=== PATIENT | male | born 1985 | race Two or more races ===

== ENCOUNTER 2016-11-03 22:20 | Emergency (ER) | payer MEDICAID, OTHER ==
[~2016-11-03] VITALS: Ht 175.3 cm; Wt 103.0 kg
[2016-11-03 22:28] VITALS: BP 125/74
== END 2016-11-03 23:54 | disposition home or self-care (01) ==
LOC: ER 22:26
DX: B02.31 Zoster conjunctivitis (principal); B02.30 Zoster ocular disease, unspecified
CPT/HCPCS: 99283; A4606; Z7610

== ENCOUNTER 2016-11-04 15:52 | Emergency (ER) | payer MEDICAID, OTHER ==
[~2016-11-04] VITALS: Ht 175.3 cm; Wt 104.3 kg
--- NOTE | 2016-11-04 16:15 | NUR ---
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 NAD NOTED, VSS, WAITING FOR MD DARBY.
[2016-11-04] MEDS ORDERED: FLUORESCEIN SODIUM OPHTH 1 EA STRIP ONE (16:45)
[2016-11-04] MEDS ORDERED: TETRACAINE HCL/PF 0.5% UD 2 ML BOTTLE ONE (16:45)
[2016-11-04] MEDS ORDERED: FLUORESCEIN SODIUM OPHTH 1 EA STRIP OP ONE (17:00)
[2016-11-04] MEDS ORDERED: TETRAcaine 5 ML BOTTLE EACHEYE ONE (17:00)
--- NOTE | 2016-11-04 17:02 | NUR ---
DR. FONTANA ON THE PHONE WITH DR MIJARES (OPHTHALMOLOGY)
[2016-11-04 17:47] VITALS: BP 125/75
--- NOTE | 2016-11-04 17:50 | NUR ---
Patient discharged to home in stable condition. Written and verbal after care instructions given. Patient verbalizes understanding of instruction.
== END 2016-11-04 17:49 | disposition home or self-care (01) ==
LOC: ER 16:01
DX: B02.30 Zoster ocular disease, unspecified (principal); R79.89 Other specified abnormal findings of blood chemistry
CPT/HCPCS: 82962; 99283; A4606; Z7610

== ENCOUNTER 2018-07-17 19:23 | Emergency (ER) | payer MEDICAID, OTHER ==
[~2018-07-17] VITALS: Ht 175.3 cm; Wt 113.4 kg
--- NOTE | 2018-07-17 20:04 | NUR ---
C/C R FLANK PAIN RADIATING TO TESTICLE SINCE 11AM, VOMIT X2, TOOK TYLENOL DIE BAKER, HX OF KIDNEY STONE. PAIN IS 7/10, SHARP. MADE COMFORTABLE AND READY FOR EVAL.
[2018-07-17 20:27] LABS: BASOPHILS # (AUTO) 0.1 /CMM (0.0-0.2); BASOPHILS % (AUTO) 0.6 % (0.0-2.0); EOSINOPHILS % (AUTO) 0.3 % (0.0-6.0); HEMATOCRIT 43 % (39-51); HEMOGLOBIN 14.6 g/dL (13.5-17.5); LYMPHOCYTES # (AUTO) 0.8 /CMM (0.8-4.8); MEAN CORPUSCULAR HGB CONC 34 g/dl (31.0-36.0); MEAN CORPUSCULAR VOLUME 89 fL (80-96); MONOCYTES # (AUTO) 0.5 /CMM (0.1-1.30); MONOCYTES % (AUTO) 3.8 % (2.0-12.0); NEUTROPHILS # (AUTO) 10.6 /CMM (1.8-8.9); NEUTROPHILS % (AUTO) 88.3 % (43.0-81.0); PLATELET COUNT (AUTO) 301 /CMM (150-450); RED BLOOD CELL COUNT(AUTO) 4.86 MIL/uL (4.5-6.0)
[2018-07-17] MEDS ORDERED: KETOROLAC TROMETHAMINE INJ 30 MG/ML VIAL IV ONE (20:30)
[2018-07-17] MEDS ORDERED: ONDANSETRON HCL/PF 4 MG/2 ML VIAL IVP ONE (20:30)
[2018-07-17] MEDS ORDERED: IV NS 0.9% 1,000 ML BAG IV ONE (20:30)
[2018-07-17 20:36] LABS: CALCIUM, SERUM 9.1 mg/dL (8.5-10.1); CREATININE 0.9 mg/dL (0.6-1.3); POTASSIUM 4.1 mmol/L (3.5-5.1)
[2018-07-17 20:39] LABS: ALBUMIN 3.9 g/dL (3.4-5.0); BILIRUBIN,DIRECT 0.1 mg/dL (0.0-0.2); BILIRUBIN,TOTAL 0.6 mg/dL (0.2-1.0); TOTAL PROTEIN, SERUM 7.4 g/dL (6.4-8.2)
[2018-07-17 21:00] LABS: APPEARANCE,URINE Clear (CLEAR); BILIRUBIN,URINE Negative (NEGATIVE); BLOOD, URINE Small Ery/uL (NEGATIVE); COLOR,URINE Yellow (YELLOW); KETONES,URINE Negative (NEGATIVE); LEUKOCYTE ESTERASE ,URINE Negative (NEGATIVE); NITRITE, URINE Negative (NEGATIVE); PROTEIN,URINE Negative (NEGATIVE); UGLUCOSE Negative (NEGATIVE); UROBILINOGEN,URINE 0.2 EU/dL (0.2)
[2018-07-17 21:21] LABS: BACTERIA,URINE None seen /HPF (None Seen); SQUAMOUS EPITHELIAL CELL,UR Few /HPF (None Seen); WBC,URINE 0-2 /HPF (0-3)
[2018-07-17] MEDS ORDERED: ONDANSETRON HCL/PF 4 MG/2 ML VIAL ONE (21:44)
[2018-07-17] MEDS ORDERED: KETOROLAC TROMETHAMINE 15 MG/ML VIAL ONE (21:44)
--- NOTE | 2018-07-17 22:11 | NUR ---
IV ACCESS OBTAINED, MEDS GIVEN AND IVF INFUSING. WILL CONT TO MONITOR.
--- NOTE | 2018-07-17 23:15 | NUR ---
IV removed. Catheter intact and site benign. Pressure and 4x4 applied to site. No bleeding noted.Patient discharged to home in stable condition. Written and verbal after care instructions given. Patient verbalizes understanding of instruction.
[2018-07-18 01:19] VITALS: BP 127/74
== END 2018-07-17 23:15 | disposition home or self-care (01) ==
LOC: ER 19:23
DX: N23 Unspecified renal colic (principal); R11.10 Vomiting, unspecified; E86.0 Dehydration; F12.10 Cannabis abuse, uncomplicated; I63.9 Cerebral infarction, unspecified; Z87.442 Personal history of urinary calculi
CPT/HCPCS: 36415; 80048; 80076; 81001; 83690; 85025; 96361; 96374; 96375; 99283; J1885; J2405; J7030; 81000-TC

== ENCOUNTER 2019-09-13 22:19 | Emergency (ER) | payer MEDICAID, OTHER ==
[~2019-09-13] VITALS: Ht 175.3 cm; Wt 111.1 kg
[2019-09-13 22:37] VITALS: BP 122/85
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
[2019-09-13] MEDS ORDERED: oxyCODONE/APAP (5/325 MG) 1 UDTAB TABLET ONE (22:58)
[2019-09-13] MEDS ORDERED: oxyCODONE/APAP (5/325 MG) 1 UDTAB TABLET PO ONE (23:00)
[2019-09-13] MEDS ORDERED: LIDOCAINE HCL/MPF 1% 30 ML VIAL IJ ONE (23:51)
[2019-09-14] MEDS ORDERED: LIDOCAINE HCL/PF 1% 30 ML VIAL IM ONE
--- NOTE | 2019-09-14 01:47 | NUR ---
Patient discharged to home in stable condition. Written and verbal after care instructions given. Patient verbalizes understanding of instruction.pt. ambulatory with a steady gait
== END 2019-09-14 01:48 | disposition home or self-care (01) ==
LOC: ER 22:27
DX: S62.336A Displaced fracture of neck of fifth metacarpal bone, right hand, initial encounter for closed fracture (principal); S62.314A Displaced fracture of base of fourth metacarpal bone, right hand, initial encounter for closed fracture; W22.01XA Walked into wall, initial encounter; Y93.89 Activity, other specified; Y92.89 Other specified places as the place of occurrence of the external cause; Y99.8 Other external cause status
CPT/HCPCS: 26605; 73130 ×2; 99284; J3490 ×2

== ENCOUNTER 2020-07-21 16:52 | Emergency (ER) | payer MEDICAID ==
[~2020-07-21] VITALS: Ht 175.3 cm; Wt 108.9 kg
[2020-07-21 17:03] VITALS: BP 127/90
[2020-07-21] MEDS ORDERED: HYDR28CR67 TP (17:22)
[2020-07-21] MEDS ORDERED: IBUP-1955 PO (17:22)
[2020-07-21] MEDS ORDERED: TRAM50TA2 PO (17:22)
== END 2020-07-21 17:26 | disposition home or self-care (01) ==
LOC: ER 16:52
DX: L30.8 Other specified dermatitis (principal); Z87.442 Personal history of urinary calculi; Z79.899 Other long term (current) drug therapy

== ENCOUNTER 2020-07-23 16:35 | Emergency (ER) | payer MEDICAID ==
[~2020-07-23] VITALS: Ht 175.3 cm; Wt 111.1 kg
[~2020-07-23 16:35] MED LIST: HYDR28CR67 TP; IBUP-1955 PO; TRAM50TA2 PO
[2020-07-23 16:47] VITALS: BP 138/88
[2020-07-23] MEDS ORDERED: VALA100026 PO (16:56)
--- NOTE | 2020-07-23 17:07 | NUR ---
Patient discharged to home in stable condition. Written and verbal after care instructions given. Patient verbalizes understanding of instruction. Pt ambulatory with a steady gait
== END 2020-07-23 17:09 | disposition home or self-care (01) ==
LOC: ER 16:39
DX: B02.39 Other herpes zoster eye disease (principal); Z87.442 Personal history of urinary calculi

== ENCOUNTER 2020-11-23 08:48 | Emergency (ER) | payer MEDICAID ==
[~2020-11-23] VITALS: Ht 175.3 cm; Wt 111.1 kg
[~2020-11-23 08:48] MED LIST changes: +VALA100026 PO
--- NOTE | 2020-11-23 09:10 | NUR ---
The patient is c/o lower back pain x 1 week. Rates pain 7/10. Denies having any trauma. No apparent deformity/bruising noted. Denies numbness/tingling in the extremities. Will continue to monitor the patient.
--- NOTE | 2020-11-23 09:13 | NUR ---
DR ALMEIDA AT THE BEDSIDE
[2020-11-23] MEDS ORDERED: HYDROCODONE/APAP 5/325MG TABLET ONE (10:04)
[2020-11-23] MEDS ORDERED: HYDR-4303 PO (10:15)
[2020-11-23] MEDS ORDERED: CYCL5TAB PO (10:15)
[2020-11-23] MEDS ORDERED: IBUP-1955 PO (10:15)
[2020-11-23] MEDS ORDERED: PRED20TA PO (10:15)
[2020-11-23 10:16] VITALS: BP 126/75
--- NOTE | 2020-11-23 10:16 | NUR ---
Patient discharged to home in stable condition. Written and verbal after care instructions given. Patient verbalizes understanding of instruction.
[2020-11-23] MEDS ORDERED: HYDROCODONE/APAP 5/325MG TABLET PO ONE (10:30)
== END 2020-11-23 10:19 | disposition home or self-care (01) ==
LOC: ER 08:49
DX: M54.50 Low back pain, unspecified (principal); Z79.899 Other long term (current) drug therapy

== ENCOUNTER 2021-03-31 04:57 | Emergency (ER) | payer MEDICAID ==
[~2021-03-31] VITALS: Ht 175.3 cm; Wt 111.1 kg
[~2021-03-31 04:57] MED LIST changes: +CYCL5TAB PO; +HYDR-4303 PO; +PRED20TA PO
--- NOTE | 2021-03-31 05:20 | NUR ---
BIBS C/O "FEELING A LUMP ON TOP OF MY BELLYBUTTON". PATIENT ALERT AND ORIENTED X3. AMBULATORY WITH NON LABORED BREATHING. PATIENT IN A GOWN ON BED 04 ON MONITOR AND POX.
--- NOTE | 2021-03-31 05:29 | NUR ---
URINE COLLECTED AND SENT TO LAB
[2021-03-31 05:36] LABS: BASOPHILS % (AUTO) 0.5 % (0.0-2.0); EOSINOPHILS % (AUTO) 8.6 % (0.0-6.0); HEMATOCRIT 44 % (39-51); HEMOGLOBIN 14.9 g/dL (13.5-17.5); LYMPHOCYTES # (AUTO) 1.3 K/uL (0.8-4.8); LYMPHOCYTES % (AUTO) 15.4 % (20.0-44.0); MEAN CORPUSCULAR HGB CONC 34 g/dl (31.0-36.0); MEAN CORPUSCULAR VOLUME 87 fL (80-96); MONOCYTES # (AUTO) 0.4 K/uL (0.1-1.30); MONOCYTES % (AUTO) 4.5 % (2.0-12.0); NEUTROPHILS # (AUTO) 5.9 K/uL (1.8-8.9); PLATELET COUNT (AUTO) 326 K/uL (150-450); RED BLOOD CELL COUNT(AUTO) 5.02 MIL/uL (4.5-6.0); WHITE BLOOD COUNT (AUTO) 8.3 K/uL (4.3-11.0)
[2021-03-31 05:38] LABS: BILIRUBIN,URINE NEGATIVE (NEGATIVE); COLOR,URINE YELLOW (YELLOW); LEUKOCYTE ESTERASE ,URINE NEGATIVE (NEGATIVE); NITRITE, URINE NEGATIVE (NEGATIVE); PROTEIN,URINE NEGATIVE (NEGATIVE); UGLUCOSE NEGATIVE (NEGATIVE)
--- NOTE | 2021-03-31 05:48 | NUR ---
PT TAKEN TO CT VIA MILI
[2021-03-31 05:49] LABS: CALCIUM, SERUM 9.3 mg/dL (8.5-10.1); CREATININE 1.1 mg/dL (0.6-1.3); POTASSIUM 3.9 mmol/L (3.5-5.1)
[2021-03-31 05:55] LABS: ALBUMIN 3.9 g/dL (3.4-5.0); BILIRUBIN,DIRECT 0.1 mg/dL (0.0-0.2); BILIRUBIN,TOTAL 0.6 mg/dL (0.2-1.0); TOTAL PROTEIN, SERUM 7.5 g/dL (6.4-8.2)
--- NOTE | 2021-03-31 05:58 | NUR ---
PT RETURNED TO ER BED [address]
[2021-03-31] MEDS ORDERED: NAPR-1164 PO (06:34)
--- NOTE | 2021-03-31 06:53 | NUR ---
Patient discharged to home in stable condition. Written and verbal after care instructions given. Patient verbalizes understanding of instruction. PT ambulatory with a steady gait
[2021-03-31 07:12] VITALS: BP 136/75
== END 2021-03-31 06:55 | disposition home or self-care (01) ==
LOC: ER 04:57
DX: K40.90 Unilateral inguinal hernia, without obstruction or gangrene, not specified as recurrent (principal); K42.9 Umbilical hernia without obstruction or gangrene; N28.1 Cyst of kidney, acquired; F12.90 Cannabis use, unspecified, uncomplicated; Z79.899 Other long term (current) drug therapy
CPT/HCPCS: 36415; 80048-TC; 80076-TC; 83690-TC; 85025-TC

== ENCOUNTER 2021-12-12 18:57 | Emergency (ER) | payer MEDICAID ==
[~2021-12-12] VITALS: Ht 175.3 cm; Wt 111.1 kg
[~2021-12-12 18:57] MED LIST changes: +NAPR-1164 PO
[2021-12-12 20:28] VITALS: BP 144/98
[2021-12-12] MEDS ORDERED: CIPR7.5D9 LEFT EAR (21:18)
== END 2021-12-12 21:20 | disposition home or self-care (01) ==
LOC: ER 19:00
DX: H60.92 Unspecified otitis externa, left ear (principal); Z87.442 Personal history of urinary calculi; Z79.899 Other long term (current) drug therapy

== ENCOUNTER 2022-11-02 01:44 | Emergency (ER) | payer MEDICAID ==
[~2022-11-02] VITALS: Ht 175.3 cm; Wt 111.1 kg
[~2022-11-02 01:44] MED LIST changes: +CIPR7.5D9 LEFT EAR
[2022-11-02 02:29] VITALS: BP 135/82; TEMP 98.1
[2022-11-02] MEDS ORDERED: TRIA15OI2 TP (03:02)
[2022-11-02 03:04] VITALS: O2SAT 98
== END 2022-11-02 03:12 | disposition home or self-care (01) ==
LOC: ER 01:48
DX: H01.9 Unspecified inflammation of eyelid (principal); Z87.442 Personal history of urinary calculi

== ENCOUNTER 2022-12-02 22:22 | Emergency (ER) | payer MEDICAID ==
[~2022-12-02] VITALS: Ht 177.8 cm; Wt 102.1 kg
[~2022-12-02 22:22] MED LIST changes: +TRIA15OI2 TP
[2022-12-02 22:53] VITALS: TEMP 98.4
[2022-12-03] MEDS ORDERED: ALBU18HF2 INH (00:22)
[2022-12-03 01:12] VITALS: BP 127/70; O2SAT 98
== END 2022-12-03 01:14 | disposition home or self-care (01) ==
LOC: ER 22:25
DX: R06.02 Shortness of breath (principal); L30.9 Dermatitis, unspecified; Z87.442 Personal history of urinary calculi
CPT/HCPCS: 71046

== ENCOUNTER 2024-07-10 20:41 | Emergency (ER) | payer MEDICAID ==
[~2024-07-10] VITALS: Ht 175.3 cm; Wt 104.3 kg
[~2024-07-10 20:41] MED LIST changes: +ALBU18HF2 INH
[2024-07-10] MEDS ORDERED: IBUP-1953 PO (21:36)
[2024-07-10] MEDS ORDERED: CYCL15CA23 PO (21:36)
[2024-07-10 21:46] VITALS: BP 122/75; TEMP 98.4; O2SAT 100
== END 2024-07-10 21:47 | disposition home or self-care (01) ==
LOC: ER 21:06
DX: M54.50 Low back pain, unspecified (principal); Z79.52 Long term (current) use of systemic steroids; Z79.624 Long term (current) use of inhibitors of nucleotide synthesis; Z79.899 Other long term (current) drug therapy